=== PATIENT | male | born 1975 | race Caucasian/White ===

== ENCOUNTER 2018-11-07 08:24 | Emergency (ER) | payer OTHER ==
[~2018-11-07] VITALS: Ht 167.6 cm; Wt 115.2 kg
--- NOTE | 2018-11-07 08:26 | NUR ---
PT BIBRA39/PD FROM [place], C/O L SIDED FACIAL NUMBNESS, MILD SLURRING OF SPEECH THAT STARTED AT 0730 TODAY. PT HAS HX OF STROKE YESTERDAY. ALSO ENDORSES PRESSURE LIKE CHEST PAIN PRIOR TO ARRIVAL AND WAS GIVEN ASPIRIN 81MG MINIMAL RELIEF. PT GOWNED AND PLACED ON MONITOR. VSS. AWAITING MD HOWARD.
--- NOTE | 2018-11-07 08:42 | NUR ---
DR MANN AT BEDSIDE FOR EVAL.
--- NOTE | 2018-11-07 08:54 | NUR ---
Patient does not wish to proceed with medical care recommended by Dr. Dover. Patient given information related to possible complications, up to and including , which could occur as a result of leaving the hospital at this time. Patient verbalizes understanding of risks involved due to leaving against medical advice. Patient has signed AMA form.
[2018-11-07 09:05] VITALS: BP 148/94
== END 2018-11-07 09:06 | disposition left against medical advice (07) ==
LOC: ER 08:36
DX: R07.89 Other chest pain (principal); R20.0 Anesthesia of skin; R29.810 Facial weakness; I10 Essential (primary) hypertension; E11.9 Type 2 diabetes mellitus without complications; F17.200 Nicotine dependence, unspecified, uncomplicated; Z86.73 Personal history of transient ischemic attack (TIA), and cerebral infarction without residual deficits; Z88.0 Allergy status to penicillin
CPT/HCPCS: 82962-TC